=== PATIENT | female | born 1995 | race Caucasian/White ===

== ENCOUNTER 2023-09-28 07:45 | Inpatient (IN) ==
[2023-09-30] MEDS: Lactated Ringers 1000 ml BAG 1,000 ML IV ONE (05:54)
[2023-09-30 06:22] LABS: Hematocrit 37.1 % (35-45); Hemoglobin 12.5 g/dL (11.5-14.3); Mean Corpuscular Hemoglobin 30.9 pg (27-33); Mean Corpuscular Hgb Conc 33.8 g/dL (31-36); Mean Corpuscular Volume 91.6 fL (80-97); Red Blood Count 4.04 10^6/uL (3.63-4.92); Red Cell Distribution Width 14.1 % (12-17); White Blood Count 8.4 10^3/uL (3.8-11.8)
[2023-09-30] MEDS ORDERED: Phenylephrine 40 mcg/mL 10mL (400mcg) SYRINGE ONE (06:57)
[2023-09-30 07:14] LABS: Urine Appearance Clear; Urine Bilirubin Negative (Negative); Urine Blood Negative (Negative); Urine Color Yellow; Urine Glucose Negative (Negative); Urine Ketones Negative (Negative); Urine Nitrite Negative (Negative); Urine Protein Trace (Negative); Urine Specific Gravity 1.025 (1.002-1.030); Urine Urobilinogen Negative (Negative); Urine pH 6.5 (5.0-8.0)
[2023-09-30 07:15] LABS: Urine Bacteria Absent /HPF (Absent); Urine Red Blood Cell Trace(0-2/hpf) /HPF (0-Trace); Urine Squamous Epithelial Cell Present /HPF (Absent); Urine White Blood Cell Trace(0-5/hpf) /HPF (0-Trace)
[2023-09-30 07:28] LABS: ABS Eosinophils 0.1 10^3/uL (0.0-0.5); ABS Lymphocytes 2.1 10^3/uL (1.0-4.8); ABS Monocytes 0.5 10^3/uL (0.0-0.9); ABS Neutrophils 5.7 10^3/uL (1.5-7.6); ABS Nucleated RBC 0.02 10^3/ul; Eosinophil % 1.3 %; Lymphocyte % 24.9 %; Mean Platelet Volume 9.6 fL (7.5-11.2); Nucleated Red Blood Cells % 0.3 %/100WBC (0.0-0.8); Platelet Count 158 10^3/uL (150-450)
[2023-09-30] MEDS: ceFAZolin 2 GM PREMIX 2 GM/50 ML BAG IV ONE (07:32)
[2023-09-30] MEDS ORDERED: Morphine PF AMP (0.5MG/ML) 5 MG/10 ML AMP ONE (07:32)
[2023-09-30] MEDS: Sodium Citrate/Citric Acid LIQ 15 ML UDC PO ONE (07:32)
[2023-09-30] MEDS ORDERED: fentaNYL 100 mcg/2 ml 50 MCG/ML VIAL ONE (07:32)
[2023-09-30] MEDS ORDERED: Bupivacaine-MPF SPINAL 7.5 MG/ML - 2ML AMP ONE (07:45)
[2023-09-30 07:49] LABS: Urine Benzodiazepine Screen None Detected (None Detect); Urine Cannabinoids Screen None Detected (None Detect); Urine Opiates Screen None Detected (None Detect)
[2023-09-30] MEDS: ceFOXitin 2 GM IVPREMIX 2 GM/50 ML BAG IVPB ONE (08:12)
[2023-09-30] MEDS ORDERED: Acetaminophen IV 1 GM/100ML 1,000 MG/100 ML BAG IV ONE (08:17)
[2023-09-30] MEDS: Oxytocin in LR 20,000 MILLI.UNIT/1,000 ML BAG IV SCH (08:37)
[2023-09-30] MEDS ORDERED: Ondansetron 4 mg VIAL 2 MG/ML 2 ml VIAL ONE (08:47)
[2023-09-30] MEDS ORDERED: Oxytocin 10 UNITS/ML 1 ML VIAL ONE ×2 (08:52→09:04)
[2023-09-30] MEDS: Buffered Lidocaine 1% SYRIN 1 ml INTRADERM ONE (09:01)
[2023-09-30] MEDS: Lactated Ringers 1000 ml BAG 1,000 ML IV SCH (09:01)
[2023-09-30] MEDS ORDERED: Glycerin ADULT 2.4 gm SUPP PR PRN (09:29)
[2023-09-30] MEDS ORDERED: Witch Hazel PAD JAR TOPICAL PRN (09:29)
[2023-09-30] MEDS ORDERED: Dibucaine 1% OINT 28.35 GM TUBE PR PRN (09:29)
[2023-09-30] MEDS ORDERED: Naloxone 0.4 mg VIAL 0.4 mg/ml 1 ml VIAL IV PUSH PRN (09:35)
[2023-09-30] MEDS ORDERED: Ondansetron 4 mg VIAL 2 MG/ML 2 ml VIAL IV PRN (09:35)
[2023-09-30] MEDS ORDERED: Naloxone 0.4 mg VIAL 0.4 mg/ml 1 ml VIAL IV PRN (09:35)
[2023-09-30] MEDS ORDERED: Acetaminophen IV 1 GM/100ML 1,000 MG/100 ML BAG IV PRN (09:35)
[2023-09-30] MEDS ORDERED: Lactated Ringers 1000 ml BAG 1,000 ML IV SCH (10:00)
[2023-09-30 10:44] LABS: Urine Appearance Clear; Urine Bilirubin Negative (Negative); Urine Blood Negative (Negative); Urine Color Light-Yellow; Urine Glucose Negative (Negative); Urine Ketones Negative (Negative); Urine Nitrite Negative (Negative); Urine Protein Negative (Negative); Urine Specific Gravity 1.019 (1.002-1.030); Urine Urobilinogen Negative (Negative); Urine pH 6.5 (5.0-8.0)
[2023-09-30] MEDS: Prochlorperazine 5 mg/ml 2 ml VIAL (10 mg) IV PRN (14:32)
[2023-09-30] MEDS: Scopolamine 1 mg/72hr PATCH TRANSDERM SCH (14:36)
[2023-09-30] MEDS: Succinylcholine 200 mg VIAL 20 mg/ml 10 ml VIAL (200 mg) ONE (20:29)
[2023-10-01 06:52] LABS: ABS Eosinophils 0.1 10^3/uL (0.0-0.5); ABS Lymphocytes 2.6 10^3/uL (1.0-4.8); ABS Monocytes 0.6 10^3/uL (0.0-0.9); ABS Neutrophils 8.5 10^3/uL (1.5-7.6); ABS Nucleated RBC 0.01 10^3/ul; Eosinophil % 0.8 %; Hemoglobin 10.8 g/dL (11.5-14.3); Lymphocyte % 22.4 %; Mean Corpuscular Hemoglobin 31.1 pg (27-33); Mean Corpuscular Hgb Conc 33.8 g/dL (31-36); Mean Corpuscular Volume 92.1 fL (80-97); Mean Platelet Volume 9.1 fL (7.5-11.2); Platelet Count 142 10^3/uL (150-450); Red Blood Count 3.48 10^6/uL (3.63-4.92); Red Cell Distribution Width 14.5 % (12-17); White Blood Count 11.8 10^3/uL (3.8-11.8)
[2023-10-02] MEDS: Ondansetron ODT 4 mg TAB 4 MG TAB SL PRN (14:38)
[2023-10-03 08:26] VITALS: BP 125/64
[2023-10-03 11:27] LABS: ABS Eosinophils 0.1 10^3/uL (0.0-0.5); ABS Lymphocytes 1.1 10^3/uL (1.0-4.8); ABS Monocytes 0.2 10^3/uL (0.0-0.9); ABS Neutrophils 3.9 10^3/uL (1.5-7.6); Eosinophil % 1.4 %; Hematocrit 36.6 % (35-45); Hemoglobin 12.3 g/dL (11.5-14.3); Lymphocyte % 21.5 %; Mean Corpuscular Hemoglobin 31.1 pg (27-33); Mean Corpuscular Hgb Conc 33.7 g/dL (31-36); Mean Corpuscular Volume 92.2 fL (80-97); Mean Platelet Volume 7.5 fL (7.5-11.2); Nucleated Red Blood Cells % 0.1 %/100WBC (0.0-0.8); Platelet Count 185 10^3/uL (150-450); Red Blood Count 3.98 10^6/uL (3.63-4.92); Red Cell Distribution Width 14.9 % (12-17); White Blood Count 5.3 10^3/uL (3.8-11.8)
== END 2023-10-03 16:58 | disposition home or self-care (01) | DRG 540 ==
LOC: MCHOB 09-30 05:21
PROVIDERS: ADMIT Obstetrics & Gynecology; ATTEND Obstetrics & Gynecology